=== PATIENT | male | born 1985 | race African-American/Black ===

== ENCOUNTER 2018-09-06 15:34 | Emergency (ER) | payer OTHER ==
--- NOTE | 2018-09-06 15:50 | PDOC ---
Rapid Medical Evaluation Chief Complaint: Pain, Acute Time Seen by Provider: 09/06/18 15:48 Medical Evaluation: 09/06/18 15:48 HPI: abdominal pain x 5 hours 1 episode of vomiting PE:no gross deficits ORDERS: Belly labs 09/06/18 15:49 Discharge Disposition - Diagnosis Abdominal pain - Referrals - Patient Instructions - Post Discharge Activity
[2018-09-06 15:52] VITALS: BMI 24.3
[2018-09-06 16:47] LABS: BASO % 0.8 % (0-2.0); EOS % 0.3 % (0-4.5); HEMOGLOBIN 15.3 GM/dL (11.7-16.9); LYMPH % 7.8 % (8-40); MCH 29.5 pg (25.7-33.7); MCHC 33.2 g/dl (32.0-35.9); MEAN CELL VOLUME 88.9 fl (80-96); MEAN PLT VOLUME 8.8 fl (7.5-11.1); MONO % 4.7 % (3.8-10.2); NEUT % 86.4 % (42.8-82.8); PLATELET COUNT 216 K/MM3 (134-434); RBC 5.18 M/mm3 (4.00-5.60); RDW 13.8 % (11.9-15.9); WHITE BLOOD COUNT 12.3 K/mm3 (4.0-10.0)
[2018-09-06] MEDS ORDERED: MAG HYDROX/AL HYDROX/SIMETH 30 ML UNIT-DOSE CUP ONE (16:57)
--- NOTE | 2018-09-06 17:06 | PDOC ---
History of Present Illness - General Chief Complaint: Pain, Acute Stated Complaint: STOMACH PAIN Time Seen by Provider: 09/06/18 15:48 History Source: Patient - History of Present Illness Initial Comments: 09/06/18 16:39 Pt is a 33y/o M with no significant medical hx or hx of abdominal surgeries presenting with abdominal pain of 3-4 hrs duration. He describes the pain as a non-radiating twisting pain in the epigasatrium. He denies any relieving/ exacerbating factors. He has had one episode of non-bloody emesis post PO consumption and is currently nauseous. He denies any fever, chills, hematuria, dysuria, melena,diarrhea or sensation of heartburn 09/06/18 17:26 Past History - Past Medical History Allergies/Adverse Reactions: Allergies Allergy/AdvReac Type Severity Reaction Status Date / Time No Known Allergies Allergy Verified 09/06/18 15:50 Home Medications: Ambulatory Orders Famotidine [Pepcid -] 20 mg PO DAILY #30 tablet 09/06/18 Cardiac Disorders: No Hx Myocardial Infarction: No COPD: No Diabetes: No GI Disorders: No - Surgical History Abdominal Surgery: No Appendectomy: No GI Surgery: No - Family Disease History Family Disease History: Diabetes: Father (Gastritis) - Suicide/Smoking/Psychosocial Hx Smoking History: Never smoked *Physical Exam - Vital Signs Last Vital Signs Temp Pulse Resp BP Pulse Ox 98.4 F 77 22 H 117/77 100 09/06/18 15:51 09/06/18 15:51 09/06/18 15:51 09/06/18 15:51 09/06/18 15:51 - Physical Exam General Appearance: Yes: Nourished, Appropriately Dressed, Moderate Distress HEENT: positive: EOMI, Normal Voice, Symmetrical. negative: Photophobia, Scleral Icterus (R), Scleral Icterus (L) Respiratory/Chest: positive: Lungs Clear, Normal Breath Sounds. negative: Respiratory Distress, Decreased Breath Sounds, Crackles, Rales, Wheezing Cardiovascular: positive: Regular Rhythm, Regular Rate, S1, S2 Gastrointestinal/Abdominal: positive: Normal Bowel Sounds, Soft, Other ( Tenderness to palpation in the epigastric region. No guarding or rebound, no cva tenderness). negative: Pulsatile Mass, Distended Musculoskeletal: positive: Normal Inspection. negative: CVA Tenderness (R), CVA Tenderness (L) Extremity: positive: Normal Inspection, Normal Range of Motion Integumentary: positive: Normal Color, Dry, Warm Neurologic: positive: Fully Oriented, Alert, Normal Response Heart Score/ECG Review - History History: Slightly suspicious - Electrocardiogram EKG: Non specific repolarization disturbance - Age Age: </= 45 - Risk Factors Risk Factors Heart Score: No Hx Hypercholesterolemia, No Hx Hypertension, No Hx Diabetes #1 General ECG Interpretation: Sinus Rhythm, Normal Rate, No acute ischemic changes Compared to previous ECG there are: Previous ECG unavail - ECG Intrepretation Comment:: 09/06/18 17:50 Normal sinus rhythm sinus arrhythmia (likely due to respiratory variation) 09/06/18 18:29 - Verden Verden: Right Verden Deviation ED Treatment Course - LABORATORY CBC & Chemistry Diagram: 09/06/18 16:37 09/06/18 18:19 Medical Decision Making - Medical Decision Making 09/06/18 17:32 DDX: PUD vs pancreatitis vs cholecystitis vs billiary colic vs ACS Plan -Cardiac enzymes & EKG -CMP, Lipase, CBC -IV Acetaminophen for pain control -IV Zofran for nausea -RUQ abdominal u/s Labs wnl (lipase and lft's) biliary colic and pancreatitis less likely. Pain likely due to gastritis 09/08/18 23:26 *DC/Admit/Observation/Transfer Diagnosis at time of Disposition: Abdominal pain Qualifiers: Abdominal location: epigastric Qualified Code(s): R10.13 - Epigastric pain - Discharge Dispostion Disposition: HOME Condition at time of disposition: Stable - Prescriptions Prescriptions: Famotidine [Pepcid -] 20 mg PO DAILY #30 tablet - Referrals Referrals: [facility] [place] [facility] [Provider Group] Milla Causey MD [Staff Physician] - - Patient Instructions Printed Discharge Instructions: DI for Gastroesophageal Reflux Disease (GERD), DI for Abdominal Pain-Adult, GERD Diet Additional Instructions: You were seen in the Emergency Department for evaluation of abdominal pain. Your labs were unremarkable and your ultrasound was negative for gallstones. Review the handout provided at discharge. Follow up with your primary care provider and the gatroenterology referral provided. Return to the Emergency Department if you develop fevers/chills, chest pain, trouble breathing, inability to tolerate food, worsening symptoms, or any new/concerning symptoms. A prescription for Zantac was sent to your pharmacy. You may take Maalox over the counter for your symptoms. - Post Discharge Activity
[2018-09-06 17:09] LABS: PH,URINE >= 9.0 (5.0-8.0); URINE APPEARANCE CLEAR; URINE BILIRUBIN NEGATIVE (NEGATIVE); URINE COLOR YELLOW; URINE GLUCOSE (UA) NEGATIVE (NEGATIVE); URINE KETONE 2+ (NEGATIVE); URINE LEUK ESTERASE NEGATIVE (NEGATIVE); URINE NITRITE NEGATIVE (NEGATIVE); URINE PROTEIN NEGATIVE (NEGATIVE)
[2018-09-06] MEDS ORDERED: ACETAMINOPHEN 1000 MG/100 ML VIAL (NON FORMULARY) IVPB ONE (17:10)
[2018-09-06] MEDS ORDERED: ONDANSETRON 4 MG/2 ML VIAL IVPUSH ONE (17:11)
[2018-09-06] MEDS ORDERED: ACETAMINOPHEN INJECTION 100 ML IVPB ONE (17:14)
[2018-09-06] MEDS ORDERED: ONDANSETRON 4 MG/2 ML VIAL ONE (17:15)
[2018-09-06 18:44] LABS: ALBUMIN 4.1 g/dl (3.4-5.0); ALK PHOS 92 U/L (45-117); ANION GAP 6 MMOL/L (8-16); BILIRUBIN,TOTAL 0.6 mg/dL (0.2-1); BLOOD UREA NITROGEN 12.4 mg/dL (7-18); CALCIUM 9.4 mg/dL (8.5-10.1); CHLORIDE 107 mmol/L (98-107); CO2 27 mmol/L (21-32); GLUCOSE,RANDOM 107 mg/dL (74-106); POTASSIUM 3.7 mmol/L (3.5-5.1); SGOT/AST 27 U/L (15-37); SGPT/ALT 25 U/L (13-61); SODIUM 140 mmol/L (136-145); TOT PROT 7.5 g/dl (6.4-8.2)
--- NOTE | 2018-09-06 19:05 | PDOC ---
*Physical Exam - Vital Signs Last Vital Signs Temp Pulse Resp BP Pulse Ox 98.4 F 77 22 H 117/77 100 09/06/18 15:51 09/06/18 15:51 09/06/18 15:51 09/06/18 15:51 09/06/18 15:51 ED Treatment Course - LABORATORY CBC & Chemistry Diagram: 09/06/18 16:37 09/06/18 18:19 - ADDITIONAL ORDERS Additional order review: Laboratory Results 09/06/18 09/06/18 09/06/18 18:19 16:40 16:37 Sodium 140 Cancelled Potassium 3.7 Cancelled Chloride 107 Cancelled Carbon Dioxide 27 Cancelled Anion Gap 6 L Cancelled BUN 12.4 Cancelled Creatinine 1.0 Cancelled Est GFR (CKD-EPI)AfAm 115.72 Cancelled Est GFR (CKD-EPI)NonAf 99.85 Cancelled Random Glucose 107 H Cancelled Calcium 9.4 Cancelled Total Bilirubin 0.6 Cancelled AST 27 Cancelled ALT 25 Cancelled Alkaline Phosphatase 92 Cancelled Total Protein 7.5 Cancelled Albumin 4.1 Cancelled Lipase Cancelled Urine Color Yellow Urine Appearance Clear Urine pH >= 9.0 H Ur Specific Combs 1.016 Urine Protein Negative Urine Glucose (UA) Negative Urine Ketones 2+ H Urine Blood Negative Urine Nitrite Negative Urine Bilirubin Negative Urine Urobilinogen 1.0 Ur Leukocyte Esterase Negative 09/06/18 16:37 RBC 5.18 MCV 88.9 MCHC 33.2 RDW 13.8 MPV 8.8 Neutrophils % 86.4 H Lymphocytes % 7.8 L Monocytes % 4.7 Eosinophils % 0.3 Basophils % 0.8 - Medications Given in the ED: ED Medications Discontinued Medications Generic Name Dose Route Start Last Admin Trade Name Bonnie PRN Reason Stop Dose Admin Acetaminophen 1,000 mg 09/06/18 17:10 09/06/18 17:16 Ofirmev Injection - IVPB 09/06/18 17:11 1,000 mg ONCE ONE Administration Ondansetron HCl 4 mg 09/06/18 17:11 09/06/18 17:16 Zofran Injection IVPUSH 09/06/18 17:12 4 mg NOW ONE Administration Medical Decision Making - Medical Decision Making I have assumed care of the patient. Pt pending Lipase and Trop I results as well as PO tolerance Lipase wnl Trop I neg Will PO challenge 09/06/18 19:13 Pt w/o abd pain Tolerating PO in ED Plan for D/C w/ GI f/u Discharge instructions and return precautions given Pt in agreement and verbalized understanding Dispo: home *DC/Admit/Observation/Transfer Diagnosis at time of Disposition: Abdominal pain Qualifiers: Abdominal location: epigastric Qualified Code(s): R10.13 - Epigastric pain - Discharge Dispostion Disposition: HOME Condition at time of disposition: Stable Decision to Admit order: No - Prescriptions Prescriptions: Famotidine [Pepcid -] 20 mg PO DAILY #30 tablet - Referrals Referrals: Milla Causey MD [Staff Physician] - [facility] [place] [facility] [place]Provider Group] - Patient Instructions Printed Discharge Instructions: DI for Gastroesophageal Reflux Disease (GERD), DI for Abdominal Pain-Adult, GERD Diet Additional Instructions: You were seen in the Emergency Department for evaluation of abdominal pain. Your labs were unremarkable and your ultrasound was negative for gallstones. Review the handout provided at discharge. Follow up with your primary care provider and the gatroenterology referral provided. Return to the Emergency Department if you develop fevers/chills, chest pain, trouble breathing, inability to tolerate food, worsening symptoms, or any new/concerning symptoms. A prescription for Zantac was sent to your pharmacy. You may take Maalox over the counter for your symptoms. - Post Discharge Activity
[2018-09-06 19:11] LABS: LIPASE 101 U/L (73-393)
--- NOTE | 2018-09-06 19:55 | PDOC ---
Documentation entered by Clara Goodrich SCRIBE, acting as scribe for Makenzie Aleman MD. Makenzie Aleman MD: This documentation has been prepared by the Kp redding Adrianna, SCRIBE, under my direction and personally reviewed by me in its entirety. I confirm that the documentation accurately reflects all work, treatment, procedures, and medical decision making performed by me. Attending Attestation - Resident Resident Name: CyrusSaadluchojose miguel - ED Attending Attestation I have performed the following: I have examined & evaluated the patient, The case was reviewed & discussed with the resident, I agree w/resident's findings & plan, Exceptions are as noted - HPI HPI: The patient is a 33 year old male, with no significant PMH, who presents to the ED for evaluation of abdominal pain for 5 hours. Patient notes his abdominal pain is localized to the epigastric region and he describes it as a twisting sensation. He reports one episode of associated NBNB vomit following PO intake. Patient endorses nausea while in the ED. He denies recent excessive etoh intake (had 1 drink 2 days ago). Denies marijuana use. Denies sick contacts. Denies diarrhea, fevers, chills. Denies urinary sxs, testicular or penile pain. Denies CP, SOB, LE edema, rashes. Denies headache, focal weakness/numbness. Reports similar sxs twice in the past with unknown trigger. Allergies: NKA, NKDA Surgical History: Nne reported Social History: None reported - Physicial Exam PE: GENERAL: +Appears uncomfortable, but in NAD. Awake, alert, and fully oriented. HEAD: No signs of trauma EYES: PERRLA, EOMI, sclera anicteric, conjunctiva clear ENT: Nares patent, oropharynx clear without exudates. Moist mucosa NECK: Normal ROM, supple, no lymphadenopathy, JVD, or masses LUNGS: Breath sounds equal, clear to auscultation bilaterally. No wheezes, and no crackles HEART: Regular rate and rhythm, normal S1 and S2, no murmurs, rubs or gallops ABDOMEN: +Tenderness to palpation over the epigastric region. Soft, normoactive bowel sounds. No guarding, no rebound. No masses EXTREMITIES: Normal range of motion, no edema. No clubbing or cyanosis. No cords , erythema, or tenderness NEUROLOGICAL: Normal speech, cranial nerves intact, equal strength and sensation b/l SKIN: Warm, Dry, normal turgor, no rashes or lesions noted. - Medical Decision Making 09/06/18 19:44 33yo M healthy presents to the ED with epigastric pain a/w vomiting Vitals wnl Exam with mild epigsatric abd ttp DDx includies gastritis vs gastroenteritis vs GERD vs pancreatitis vs biliary colic Labs including lipase, LFTs, trop all wnl EKG non ischemic US negative for GB disease Likely gastritis vs gastroenteritis Pt feeling much better after IV tylenol and zofran Tolerating water and turkey sandwich Will refer to GI He is clinically stable for DC home I discussed the physical exam findings, ancillary test results and final diagnoses with the patient. I answered all of the patient's questions. The patient was satisfied with the care received and felt comfortable with the discharge plan and treatment plan. The patient will call their primary care physician within 24 hours to arrange follow-up and will return to the Emergency Department with any new, persistent or worsening symptoms. Heart Score/ECG Review #1 09/06/18 19:49 Twelve-lead EKG was performed and reviewed by me. Normal sinus rhythm, rate 71. Normal axis. Sinus arrhythmia due to respiratory variation. No ST elevations ED Treatment Course - LABORATORY CBC & Chemistry Diagram: 09/06/18 16:37 09/06/18 18:19 - ADDITIONAL ORDERS Additional order review: Laboratory Results 09/06/18 09/06/18 09/06/18 18:19 16:40 16:37 Sodium 140 Cancelled Potassium 3.7 Cancelled Chloride 107 Cancelled Carbon Dioxide 27 Cancelled Anion Gap 6 L Cancelled BUN 12.4 Cancelled Creatinine 1.0 Cancelled Est GFR (CKD-EPI)AfAm 115.72 Cancelled Est GFR (CKD-EPI)NonAf 99.85 Cancelled Random Glucose 107 H Cancelled Calcium 9.4 Cancelled Total Bilirubin 0.6 Cancelled AST 27 Cancelled ALT 25 Cancelled Alkaline Phosphatase 92 Cancelled Troponin I < 0.02 Total Protein 7.5 Cancelled Albumin 4.1 Cancelled Lipase 101 Cancelled Urine Color Yellow Urine Appearance Clear Urine pH >= 9.0 H Ur Specific Bryce 1.016 Urine Protein Negative Urine Glucose (UA) Negative Urine Ketones 2+ H Urine Blood Negative Urine Nitrite Negative Urine Bilirubin Negative Urine Urobilinogen 1.0 Ur Leukocyte Esterase Negative 09/06/18 16:37 RBC 5.18 MCV 88.9 MCHC 33.2 RDW 13.8 MPV 8.8 Neutrophils % 86.4 H Lymphocytes % 7.8 L Monocytes % 4.7 Eosinophils % 0.3 Basophils % 0.8 - RADIOLOGY Radiology Studies Ordered: EXAM#: TYPE/EXAM: RESULT: [id number] US/ABDOMEN US -LIMITED Right upper quadrant abdomen ultrasound Clinical information lower epigastric pain, evaluate for gallbladder pathology Impression: Negative exam. No definite sonographic abnormality is identified. Reported By: Mu De Los Santos MD 09/06/18 17:50 - Medications Given in the ED: ED Medications Discontinued Medications Generic Name Dose Route Start Last Admin Trade Name Freq PRN Reason Stop Dose Admin Acetaminophen 1,000 mg 09/06/18 17:10 09/06/18 17:16 Ofirmev Injection - IVPB 09/06/18 17:11 1,000 mg ONCE ONE Administration Ondansetron HCl 4 mg 09/06/18 17:11 09/06/18 17:16 Zofran Injection IVPUSH 09/06/18 17:12 4 mg NOW ONE Administration
[2018-09-06 20:15] VITALS: BP 118/73; PULSE 76; TEMP 98.2
--- NOTE | 2018-09-08 13:40 | EKG ---
Test Reason : Blood Pressure : / mmHG Vent. Rate : 071 BPM Atrial Rate : 071 BPM P-R Int : 138 ms QRS Dur : 088 ms QT Int : 356 ms P-R-T Axes : 040 091 073 degrees QTc Int : 386 ms NORMAL SINUS RHYTHM WITH SINUS ARRHYTHMIA RIGHTWARD AXIS INCOMPLETE RBBB BORDERLINE ECG NO PREVIOUS ECGS AVAILABLE Confirmed by MD MENJIVAR MOYSES ([id number]) on 09/08/2018 1:39:29 PM Referred By: Confirmed By:STEW MENJIVAR MD
== END 2018-09-06 19:58 | disposition home or self-care (01) ==
LOC: JER 15:34
PROC: 3E033GC Introduction of Other Therapeutic Substance into Peripheral Vein, Percutaneous Approach (ICD-10-PCS; principal; 2018-09-06)
PROC: 3E033NZ Introduction of Analgesics, Hypnotics, Sedatives into Peripheral Vein, Percutaneous Approach (ICD-10-PCS; 2018-09-06)
DX: R10.13 Epigastric pain (principal)
CPT/HCPCS: 36415; 76705-TC; 80053; 81003; 82550; 82553; 83690; 84484; 85025; 93005; 93010; 96374; 96375; 99283-25; J0131

== ENCOUNTER 2020-04-16 23:56 | Emergency (ER) | payer OTHER ==
[2020-04-17] MEDS ORDERED: DIPHTH,PERTUSS(ACELL),TET 0.5 ML DISP.SYRIN IM ONE ×2 (01:40→02:16)
[2020-04-17] MEDS ORDERED: CEPHALEXIN MONOHYDRATE 500 MG CAPSULE (UD) PO ONE (01:41)
[2020-04-17] MEDS ORDERED: CEPHALEXIN MONOHYDRATE 500 MG CAPSULE (UD) ONE (02:16)
[2020-04-17 02:25] VITALS: TEMP 99.1
[2020-04-17 03:17] VITALS: BP 138/79; PULSE 92; BMI 26.6
== END 2020-04-17 03:17 | disposition home or self-care (01) ==
LOC: JER 23:56
PROC: 0HQGXZZ Repair Left Hand Skin, External Approach (ICD-10-PCS; principal; 2020-04-16)
DX: S61.211A Laceration without foreign body of left index finger without damage to nail, initial encounter (principal); W25.XXXA Contact with sharp glass, initial encounter
CPT/HCPCS: 73130-TC-RT-FY; 99283-25